=== PATIENT | female | born 1965 | race Caucasian/White ===

== ENCOUNTER 2022-10-11 13:29 | Emergency (ER) | payer SELFPAY ==
[2022-10-11] MEDS ORDERED: dexAMETHasone 10 MG/ML VIAL ONE (14:03)
[2022-10-11] MEDS ORDERED: KETOROLAC 30 MG/ML INJ ONE (14:04)
--- NOTE | 2022-10-11 15:52 | RAD REPORT ---
EXAM DESCRIPTION: CT - Spine Lumbar Wo Con - 10/11/2022 3:04 pm CLINICAL HISTORY: Lifting injury, felt a pop injury, lower extremity pain/numbness COMPARISON: No comparisons TECHNIQUE: Axial noncontrast CT imaging of the lumbar spine was performed with coronal and sagittal re-formatted images. All CT scans are performed using dose optimization technique as appropriate and may include automated exposure control or mA/KV adjustment according to patient size. FINDINGS: No acute lumbar spine fracture seen. No aggressive marrow pattern or malalignment. Paraspinal tissues are normal in thickness. No paraspinal abscess or hematoma seen. Intervertebral disc disease assessment is inherently limited by CT. Within these limitations, a centr al moderate-sized disc protrusion is noted at L4-5, but suggestive hmbs-qz-tqymztsa central canal marco antonio nosis. The left subarticular disc protrusion is noted at L2-3, mildly narrowing the left lateral rece ss. No bony neural foraminal narrowing. No other high-grade canal stenosis suspected. A 4.3 x 2.4 centimeter right adrenal nodule, and a 1.9 x 1.8 centimeter left adrenal nodule are incid entally noted, both demonstrating internal CT densities less than 0 Hounsfield units, most suggestive of benign adrenal adenomas. Bilobed fluid density 2.8 centimeter centrally situated hepatic cystic l esion with partially imaged. Duodenal diverticulum containing an air-fluid level. IMPRESSION: No acute abnormalities. Suggestive disc protrusions centrally at L4-5, causing [id number] central canal stenosis, and a long left subarticular zone at L2-3, causing narrowing of the left lateral recess. No evidence of bon y neural foraminal narrowing. Please consider MRI follow-up for improved assessment of disc disease if clinically indicated. Incidentally noted bilateral adrenal low-density nodules, suggesting benign adenomas. A bilobed hepat ic fluid density cyst is also noted.
[2022-10-11 18:02] VITALS: BP 159/89; O2SAT 100
--- NOTE | 2022-10-22 17:08 | ER ---
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 Coronavirus screen: At this time, the client does not indicate any symptoms associated with coronavirus-19. Ebola Screen: No symptoms or risks identified at this time. Initial Sepsis Screen: Does the patient meet any 2 criteria? No. Patient's initial sepsis screen is negative. Does the patient have a suspected source of infection? No. Patient's initial sepsis screen is negative. Risk Assessment: Do you want to hurt yourself or someone else? Patient reports no desire to harm self or others. Onset of symptoms was October 08, 2022. 13:35 Method Of Arrival: Ambulatory ko1 13:35 Acuity: CHERIE 3 ko1 Triage Assessment: 13:40 General: Appears distressed, uncomfortable, Behavior is calm, cooperative, appropriate ko1 for age. Pain: Complains of pain in right low back. Historical: - Allergies: 13:40 PENICILLINS; ko1 13:40 Sulfa (Sulfonamide Antibiotics); ko1 - Immunization history:: Adult Immunizations unknown. - Social history:: Smoking status: Patient reports the use of cigarette tobacco products. Screenin:43 [facility] ED Fall Risk Assessment (Adult) Score/Fall Risk Level 0 - 2 = Low Risk hb Oriented to surroundings, Maintained a safe environment, Educated pt \T\ family on fall prevention, incl call for assistance when getting out of bed. Abuse screen: Denies threats or abuse. Denies injuries from another. Nutritional screening: No deficits noted. Tuberculosis screening: No symptoms or risk factors identified. Assessment: 13:46 General: Appears in no apparent distress. comfortable, Behavior is calm, cooperative, ld1 appropriate for age. Pain: Complains of pain in back and right low back Pain does not radiate. Pain currently is 7 out of 10 on a pain scale. Quality of pain is described as throbbing. Neuro: Level of Consciousness is awake, alert, obeys commands, Oriented to person, place, time, situation. Cardiovascular: Capillary refill < 3 seconds Patient's skin is warm and dry. Respiratory: Airway is patent Respiratory effort is even, unlabored. GI: Abdomen is flat, non-distended. : No signs and/or symptoms were reported regarding the genitourinary system. EENT: No signs and/or symptoms were reported regarding the EENT system. Derm: No signs and/or symptoms reported regarding the dermatologic system. Musculoskeletal: Reports pain in back. 14:43 Reassessment: Patient appears in no apparent distress at this time. Patient and/or hb family updated on plan of care and expected duration. Pain level reassessed. Patient is alert, oriented x 3, equal unlabored respirations, skin warm/dry/pink. Vital Signs: 13:35 BP 163 / 96; Pulse 78; Resp 18; Temp 97; Pulse Ox 100% ; Weight 64.86 kg; Height 5 ft. ko1 4 in. ; 15:25 BP 159 / 89; Pulse 76; Resp 18; Pulse Ox 100% on R/A; ld1 13:35 Body Mass Index 24.55 (64.86 kg, 162.56 cm) ko1 ED Course: 13:31 Patient arrived in ED. am2 13:31 Jamin Mixon PA is PHCP. [facility] 13:31 Damián Croft MD is Attending Physician. jmm 13:40 Triage completed. ko1 13:40 Arm band placed on right wrist. Patient placed in an exam room, Patient notified of ko1 wait time. 13:45 Diamond Vega, RAHAT is Primary Nurse. ld1 14:14 Missed attempt(s): 20 gauge in right forearm. Bleeding controlled, band aid applied, hb catheter tip intact. 14:28 Inserted saline lock: 22 gauge in right antecubital area, using aseptic technique. ss Blood collected. 14:43 Patient has correct armband on for positive identification. hb 15:05 CT Lumbar Spine Wo Con In Process Unspecified. EDMS 16:35 No provider procedures requiring assistance completed. IV discontinued, intact, ld1 bleeding controlled, No redness/swelling at site. Administered Medications: 14:42 Drug: Ketorolac IVP 30 mg Route: IVP; Site: right antecubital; hb 14:42 Drug: Decadron - Dexamethasone IVP 10 mg Route: IVP; Site: right antecubital; hb Medication: 14:43 VIS not applicable for this client. hb Outcome: 16:10 Discharge ordered by . virgil 16:36 Discharged to home ambulatory. ld1 16:36 Condition: stable 16:36 Discharge instructions given to patient, Instructed on discharge instructions, follow up and referral plans. medication usage, Demonstrated understanding of instructions, follow-up care, medications, Prescriptions given X 3. 16:36 Patient left the ED. ld1 Signatures: Dispatcher [employer] EDMS Jamin Mixon PA PA jmm Smirch, Shelby, RN RN ss Daisy Garcia RN RN Evelyne Noel am2 Diamond Vega RN RN ld1 Robyn Modi RN RN ko1
--- NOTE | 2022-10-22 17:09 | EDPHYS ---
Physician Documentation [facility] Name: Anna Andrade Age: 57 yrs Sex: Female : 1965 Arrival Date: 10/11/2022 Time: 13:31 Bed 2 Private MD: ED Physician Damián Croft HPI: 10/11 13:42 This 57 yrs old Female presents to ER via Ambulatory with complaints of Low Back Pain, jmm Back Injury. 13:42 The patient presents with pain that is acute. The symptoms are located in the low back. jmm The pain radiates to the right leg. Onset: The symptoms/episode began/occurred acutely, 4 day(s) ago. Modifying factors: The patient symptoms are alleviated by nothing, the patient symptoms are aggravated by sitting. This is a 57 year old female that presents to the ED with complaints of lower back pain which occurred after an episode of heavy lifting. patient states this occurred . patient initially had weakness in her legs. symptoms have improved but patient states sitting is pain ful. Denies bowel or bladder issues. . Historical: - Allergies: 13:40 PENICILLINS; ko1 13:40 Sulfa (Sulfonamide Antibiotics); ko1 - Immunization history:: Adult Immunizations unknown. - Social history:: Smoking status: Patient reports the use of cigarette tobacco products. ROS: 13:42 Constitutional: Negative for fever, chills, and weight loss, Cardiovascular: Negative jmm for chest pain, palpitations, and edema, Respiratory: Negative for shortness of breath, cough, wheezing, and pleuritic chest pain. 13:42 Back: Positive for pain with movement. 13:42 MS/extremity: Positive for pain. 13:42 All other systems are negative. Exam: 13:42 Constitutional: This is a well developed, well nourished patient who is awake, alert, jmm and in no acute distress. Head/Face: atraumatic. Eyes: EOMI, no conjunctival erythema appreciated ENT: Moist Mucus Membranes Neck: Trachea midline, Supple Chest/axilla: Normal chest wall appearance and motion. Cardiovascular: Regular rate and rhythm. No edema appreciated Respiratory: Normal respirations, no respiratory distress appreciated Abdomen/GI: Non distended 13:42 Skin: General appearance color normal MS/ Extremity: Moves all extremities, no obvious deformities appreciated, no edema noted to the lower extremities Neuro: Awake and alert Psych: Behavior is normal, Mood is normal, Patient is cooperative and pleasant 13:42 Back: pain, that is moderate, of the lumbar area. Vital Signs: 13:35 BP 163 / 96; Pulse 78; Resp 18; Temp 97; Pulse Ox 100% ; Weight 64.86 kg; Height 5 ft. ko1 4 in. ; 15:25 BP 159 / 89; Pulse 76; Resp 18; Pulse Ox 100% on R/A; ld1 13:35 Body Mass Index 24.55 (64.86 kg, 162.56 cm) ko1 MDM: 13:42 Patient medically screened. bs3 16:08 Data reviewed: vital signs, nurses notes. Counseling: I had a detailed discussion with [facility] the patient and/or guardian regarding: the historical points, exam findings, and any diagnostic results supporting the discharge/admit diagnosis, the need for outpatient follow up, to return to the emergency department if symptoms worsen or persist or if there are any questions or concerns that arise at home. 16:36 Differential diagnosis: sciatica, Herniated disc. I considered the following discharge [facility] prescriptions or medication management in the emergency department Medications were administered in the Emergency Department. See MAR. Counseling: I had a detailed discussion with the patient and/or guardian regarding: radiology results. ED course: Patient is alert and non toxic in appearance in the ED. I do not currently suspect cord compression or cauda equina. Patient advised to follow up with spine and otherwise given strict return precautions. Patient understood and agrees with the plan of care. . 10/11 14:48 Order name: CT Lumbar Spine Wo Con; Complete Time: 15:56 [facility] 10/11 13:52 Order name: Saline Lock; Complete Time: 14:32 [facility] Administered Medications: 14:42 Drug: Ketorolac IVP 30 mg Route: IVP; Site: right antecubital; hb 14:42 Drug: Decadron - Dexamethasone IVP 10 mg Route: IVP; Site: right antecubital; hb Disposition Summary: 10/11/22 16:10 Discharge Ordered Location: Home [facility] Condition: Stable [facility] Diagnosis - Sciatica, right side [facility] Followup: [facility] - With: Private Physician - When: 2 - 3 days - Reason: Recheck today's complaints, Continuance of care, Re-evaluation by your physician Discharge Instructions: - Discharge Summary Sheet jmm - Sciatica jmm - Sciatica Rehab[facility] Forms: - Work release form jmm - Medication Reconciliation Form jm - Thank You Letter jm - Antibiotic Education [facility] - Prescription Opioid Use [facility] Prescriptions: - Zanaflex 4 mg Oral Tablet - take 1 tablet by ORAL route every 8 hours As needed; 20 tablet; Refills: 0, jmm Product Selection Permitted - Diclofenac Sodium 75 mg Oral Tablet Sustained Release - take 1 tablet by ORAL route 2 times per day; 30 tablet; Refills: 0, Product jm Selection Permitted - Medrol (Merlin) 4 mg Oral Tablets, Dose Pack - take 1 tablet by ORAL route as directed - follow package instructions; 1 jmm packet; Refills: 0, Product Selection Permitted Signatures: Dispatcher [employer] EDMS Jamin Mixon PA PA jmm Baxter, Heather, RN RN Damián Croft MD MD bs3 Robyn Modi RN RN ko1 Corrections: (The following items were deleted from the chart) 14:58 13:51 Lumbar Spine Wo Con+MRI.RAD.BRZ ordered. EDMS EDMS
== END 2022-10-11 16:36 | disposition home or self-care (01) ==
LOC: ER 13:29
DX: M54.31 Sciatica, right side (principal)
CPT/HCPCS: 72131; 96374; 96375; 99284; J1100